=== PATIENT | male | born 1995 | race African-American/Black ===

== ENCOUNTER 2017-03-11 11:05 | Emergency (ER) | payer SELFPAY | END 2017-03-11 13:43 | disposition home or self-care (01) | LOC: ERS 11:05 | DX: M54.5 Low back pain (principal); G89.29 Other chronic pain; F17.210 Nicotine dependence, cigarettes, uncomplicated; X50.0XXA Overexertion from strenuous movement or load, initial encounter | CPT/HCPCS: 99283 ==